=== PATIENT | female | born 1975 | race Caucasian/White ===

== ENCOUNTER 2018-08-12 14:29 | Emergency (ER) | payer BC ==
[~2018-08-12] VITALS: Ht 162.6 cm; Wt 68.0 kg
[2018-08-12 14:30] VITALS: BP_SYST 132
--- NOTE | 2018-08-12 14:42 | NUR ---
Patient to ER bed 6 to gown for evaluation. Side rails up. Report given to Sayda ELIZABETH.
--- NOTE | 2018-08-12 14:45 | NUR ---
Patient pesented to ER with facial numbness. Patient A&Ox4, skin pink, no facial drooping noted, no slurred speech, pateint speaking in full sentences, respirations equal bilat, denies pain, denies N/V/D. Patient states facial numbness started half hour ago, patient states nausea start of numbness was able to have BM then nausea stopped. Patient denies health problems.
--- NOTE | 2018-08-12 15:15 | NUR ---
ER Dr. Calderon at bedside examining patient.
--- NOTE | 2018-08-12 15:50 | NUR ---
ER Dr. Calderon at bedside discussing discharge with patient.
[2018-08-12 15:55] VITALS: BP_SYST 132
--- NOTE | 2018-08-12 15:55 | NUR ---
Patient given written and verbal discharge instructions and verbalizes understanding. ER MD discussed with patient the results and treatment provided. Patient in stable condition. ID arm band removed. No Rx given. Patient educated on pain management and to follow up with PMD. Pain Scale 0/10. Opportunity for questions provided and answered. Medication side effect fact sheet provided.
== END 2018-08-12 15:55 | disposition home or self-care (01) ==
LOC: SED 14:29
DX: R20.2 Paresthesia of skin (principal); R03.0 Elevated blood-pressure reading, without diagnosis of hypertension; Z88.1 Allergy status to other antibiotic agents
CPT/HCPCS: 99281

== ENCOUNTER 2019-04-29 10:18 | Emergency (ER) | payer BC ==
[~2019-04-29] VITALS: Ht 162.6 cm; Wt 72.6 kg
[2019-04-29 10:18] VITALS: BP_SYST 130
[2019-04-29] MEDS ORDERED: ASPIRIN 81 MG TAB.CHEW PO ONE (10:30)
[2019-04-29] MEDS ORDERED: LORazepam 2 MG/ML VIAL IVP ONE (10:30)
[2019-04-29] MEDS ORDERED: KETOROLAC TROMETHAMINE 30 MG VIAL IVP ONE (10:30)
[2019-04-29 10:53] LABS: BASOPHILS % (AUTO) 0.7 % (0.0-2.0); EOSINOPHILS % (AUTO) 0.1 % (0.0-4.0); HEMATOCRIT 40.6 % (36-48); LYMPHOCYTES # (AUTO) 0.9 K/uL (1.0-5.5); LYMPHOCYTES % (AUTO) 15.1 % (20.5-51.5); MEAN CORPUSCULAR HEMOGLOBIN 30 pg (27-31); MEAN CORPUSCULAR HGB CONC 35 % (32-36); MEAN CORPUSCULAR VOLUME 88 fL (79.0-98.0); MONOCYTES # (AUTO) 0.3 K/uL (0.0-1.0); MONOCYTES % (AUTO) 4.7 % (1.7-9.3); NEUTROPHILS # (AUTO) 4.5 K/uL (1.8-7.7); NEUTROPHILS % (AUTO) 79.4 % (40.0-70.0); PLATELET COUNT (AUTO) 227 K/uL (130-430); RED BLOOD CELL COUNT(AUTO) 4.64 MIL/uL (4.2-6.2); RED CELL DISTRIBUTION WIDTH 12.9 % (9.0-15.0); WHITE BLOOD COUNT (AUTO) 5.7 K/uL (4.8-10.8)
[2019-04-29 11:03] LABS: CALCIUM 8.8 mg/dL (8.4-11.0); CREATININE 0.73 mg/dL (0.55-1.30); POTASSIUM 3.4 mmol/L (3.5-5.1)
[2019-04-29 11:10] LABS: ALBUMIN 3.7 g/dL (3.4-4.8); TOTAL BILIRUBIN 0.7 mg/dL (0.0-1.0)
[2019-04-29 14:27] VITALS: BP_SYST 130
== END 2019-04-29 14:29 | disposition home or self-care (01) ==
LOC: SED 10:18
DX: F41.9 Anxiety disorder, unspecified (principal); R07.89 Other chest pain; Z88.1 Allergy status to other antibiotic agents
CPT/HCPCS: 36415; 71045; 80053; 81025; 82550; 83880; 84484; 85025; 93005; 96374; 96375; 99285; J1885; J2060

== ENCOUNTER 2019-08-20 06:56 | Emergency (ER) | payer BC ==
[~2019-08-20] VITALS: Ht 162.6 cm; Wt 72.6 kg
[2019-08-20 07:19] VITALS: BP_SYST 138
[2019-08-20] MEDS ORDERED: MAG HYDROX/AL HYDROX/SIMETH 30 ML, DICYCLOMINE HCL 20 MG, LIDOCAINE VISCOUS 2% 15ML (PO... PO ONE ×3 (08:45)
[2019-08-20 08:47] LABS: BASOPHILS % (AUTO) 0.6 % (0.0-2.0); EOSINOPHILS % (AUTO) 0.8 % (0.0-4.0); HEMATOCRIT 40.2 % (36-48); HEMOGLOBIN 14.1 g/dL (12.0-16.0); LYMPHOCYTES # (AUTO) 0.8 K/uL (1.0-5.5); LYMPHOCYTES % (AUTO) 15.7 % (20.5-51.5); MEAN CORPUSCULAR HEMOGLOBIN 30 pg (27-31); MEAN CORPUSCULAR HGB CONC 35 % (32-36); MEAN CORPUSCULAR VOLUME 87 fL (79.0-98.0); MONOCYTES # (AUTO) 0.2 K/uL (0.0-1.0); MONOCYTES % (AUTO) 4.6 % (1.7-9.3); NEUTROPHILS # (AUTO) 4.2 K/uL (1.8-7.7); NEUTROPHILS % (AUTO) 78.3 % (40.0-70.0); PLATELET COUNT (AUTO) 225 K/uL (130-430); RED BLOOD CELL COUNT(AUTO) 4.62 MIL/uL (4.2-6.2); RED CELL DISTRIBUTION WIDTH 13.1 % (9.0-15.0); WHITE BLOOD COUNT (AUTO) 5.3 K/uL (4.8-10.8)
[2019-08-20] MEDS ORDERED: MAG-AL HYDROX/SIMETH 30 ML UDC ONE (08:59)
[2019-08-20] MEDS ORDERED: LIDOCAINE VISCOUS 2%, 15 ML UDC ONE (08:59)
[2019-08-20 09:00] LABS: CALCIUM 9.1 mg/dL (8.4-11.0); CREATININE 0.73 mg/dL (0.55-1.30); POTASSIUM 3.8 mmol/L (3.5-5.1)
[2019-08-20 09:07] LABS: ALBUMIN 3.9 g/dL (3.4-4.8); TOTAL BILIRUBIN 0.4 mg/dL (0.0-1.0)
[2019-08-20 09:33] VITALS: BP_SYST 138
== END 2019-08-20 09:33 | disposition home or self-care (01) ==
LOC: SED 06:56
DX: R07.2 Precordial pain (principal); Z88.1 Allergy status to other antibiotic agents
CPT/HCPCS: 36415; 71045; 80053; 82550; 83880; 84484; 85025; 93005; 99284; J2001